=== PATIENT | female | born 1970 ===

== ENCOUNTER → 2023-01-12 | Outpatient (CLI) | payer OTHER | END | disposition home or self-care (01) | LOC: SONOGRAMA 09:37 | PROVIDERS: ATTEND Pathology Anatomic Pathology & Clinical Pathology | DX: D34 Benign neoplasm of thyroid gland (principal); E06.3 Autoimmune thyroiditis ==

== ENCOUNTER 2023-10-12 08:28 | Outpatient (CLI) | payer OTHER | END 2023-10-12 08:30 | disposition home or self-care (01) | LOC: SONOGRAMA 08:28 | PROVIDERS: ATTEND Pathology Anatomic Pathology & Clinical Pathology | DX: N63.10 Unspecified lump in the right breast, unspecified quadrant (principal) ==